=== PATIENT | male | born 1980 | race Two or more races ===

== ENCOUNTER 2022-02-01 11:30 | Inpatient (IN) | payer OTHER ==
[2022-02-01 12:42] VITALS: BMI 22.4
[2022-02-01] MEDS ORDERED: METHOCARBAMOL 500 MG TABLET PO PRN (13:43)
[2022-02-01] MEDS ORDERED: methaDONE HCL 10 MG TABLET (FOR DETOX USE ONLY) PO ONE ×2 (13:43→17:00)
[2022-02-01] MEDS ORDERED: IBUPROFEN 600 MG TABLET (FP) PO PRN (13:43)
[2022-02-01] MEDS ORDERED: ONDANSETRON *ODT* 4 MG TABLET SL PRN (13:43)
[2022-02-01] MEDS ORDERED: LOPERAMIDE HCL 2 MG CAPSULE PO PRN (13:43)
[2022-02-01] MEDS ORDERED: NICOTINE 10 MG CARTRIDGE (INHALER) IH PRN (13:43)
[2022-02-01] MEDS ORDERED: DICYCLOMINE HCL 10 MG CAPSULE PO PRN (13:43)
[2022-02-01] MEDS ORDERED: BENZOCAINE/MENTHOL (CHLORASEPTIC ) LOZENGE MM PRN (13:43)
[2022-02-01] MEDS ORDERED: BISMUTH SUBSALICYLATE 524 MG/30 ML PO PRN (13:43)
[2022-02-01] MEDS ORDERED: MAGNESIUM HYDROX 2400MG/30ML ORAL SUSPENSION 30 ML CUP PO PRN (13:43)
[2022-02-01] MEDS ORDERED: ACETAMINOPHEN 325 MG TABLET (FP) PO PRN ×2 (13:43)
[2022-02-01] MEDS ORDERED: MAGNESIUM CITRATE 300 ML BOTTLE PO PRN (13:43)
[2022-02-01] MEDS ORDERED: IBUPROFEN 400 MG TABLET (FP) PO PRN (13:43)
[2022-02-01] MEDS ORDERED: MAG HYDROX/AL HYDROX/SIMETH 30 ML UNIT-DOSE CUP PO PRN (13:43)
[2022-02-01] MEDS ORDERED: cloNIDine HCL 0.1 MG TABLET PO PRN (13:43)
[2022-02-01] MEDS ORDERED: NALOXONE HCL (KLOXXADO) 8 MG SPRAY NS PRN (13:43)
[2022-02-01] MEDS: hydrOXYzine PAMOATE 25 MG CAPSULE (FP) PO SCH ×3 (16:05→22:32)
[2022-02-01 21:50] VITALS: RESP 18
[2022-02-01] MEDS ORDERED: MELATONIN 5 MG TABLETS PO SCH (22:00)
[2022-02-01] MEDS ORDERED: THIAMINE HCL 100 MG TABLET (FP) PO SCH (22:00)
[2022-02-02] MEDS: hydrOXYzine PAMOATE 25 MG CAPSULE (FP) PO SCH ×4 (07:08→20:18)
[2022-02-02 09:59] LABS: HEMATOCRIT 39.6 % (35.4-49); HEMOGLOBIN 13.1 GM/dL (11.7-16.9); MCHC 33.2 g/dl (32.0-35.9); MEAN CELL VOLUME 78.3 fl (80-96); PLATELET COUNT 435 10^3/uL (134-434); RBC 5.05 M/mm3 (4.00-5.60); RDW 14.8 % (11.9-15.9)
[2022-02-02] MEDS ORDERED: PRENATAL VITAMINS W/ FOLIC ACID TABLET (FP) PO SCH (10:00)
[2022-02-02 10:09] LABS: CALCIUM 9.3 mg/dL (8.5-10.1)
[2022-02-02 10:10] LABS: ALBUMIN 3.6 g/dl (3.4-5.0); BLOOD UREA NITROGEN 8.6 mg/dL (7-18)
[2022-02-02 10:13] LABS: CREATININE 0.7 mg/dL (0.55-1.3)
[2022-02-02] MEDS ORDERED: diazePAM 5 MG TABLET PO ONE (17:41)
[2022-02-02 19:18] VITALS: BP 139/72; PULSE 75; TEMP 97.3
[2022-02-02] MEDS ORDERED: QUEtiapine FUMARATE 25 MG TABLET PO ONE (22:00)
[2022-02-02] MEDS ORDERED: SUVOREXANT 10 MG TABLET PO PRN (22:00)
[2022-02-03] MEDS ORDERED: methaDONE HCL 10 MG TABLET (FOR DETOX USE ONLY) PO ONE (10:00)
[2022-02-05] MEDS ORDERED: methaDONE HCL 10 MG TABLET (FOR DETOX USE ONLY) PO ONE (10:00)
== END 2022-02-02 19:30 | disposition left against medical advice (07) | DRG 770 ==
LOC: YASAS 11:30 → Y3N 14:07
PROVIDERS: ADMIT Allergy & Immunology; ATTEND Surgery
PROC: HZ2ZZZZ Detoxification Services for Substance Abuse Treatment (ICD-10-PCS; principal; 2022-02-01)
DX: F11.23 Opioid dependence with withdrawal (principal); F12.20 Cannabis dependence, uncomplicated; F17.210 Nicotine dependence, cigarettes, uncomplicated; F19.24 Other psychoactive substance dependence with psychoactive substance-induced mood disorder; F41.9 Anxiety disorder, unspecified; D72.829 Elevated white blood cell count, unspecified; G47.00 Insomnia, unspecified
CPT/HCPCS: 36415; 80053; 85027; 86780; 93005; 93010; C9803-CS; U0003; U0005